=== PATIENT | male | born 1950 | race Caucasian/White ===

== ENCOUNTER → 2019-05-11 10:18 | Outpatient (CLI) | payer MEDICARE, SELFPAY ==
[2019-05-11 11:11] LABS: Hemoglobin A1C% w Est Avg Glu 6.3 % (4.0-6.0)
[2019-05-11 11:21] LABS: Alanine Aminotransferase 35 IU/L (21-72); Albumin 4.2 g/dL (3.5-5.0); Albumin Globulin Ratio 1.4 (1.0-2.8); Alkaline Phosphatase 70 U/L (38-126); Aspartate Aminotransferase 33 IU/L (17-59); BUN Creatinine Ratio 21.3 (6-22); Bilirubin Total 0.5 mg/dL (0.2-1.3); Blood Urea Nitrogen 17 mg/dL (9-20); Calcium 9.3 mg/dL (8.4-10.2); Carbon Dioxide 28 mmol/L (22-32); Chloride 101 mmol/L (98-107); Cholesterol 184 mg/dL (140-199); Estimated Glomerular Filt Rate > 60.0 mL/min (>60); Globulin 3.1 g/dL (1.7-4.1); Glucose 132 mg/dL (80-110); HDL Cholesterol 60 mg/dL (40-60); HEMOLYSIS < 15 (0-50); LDL Cholesterol Calculated 115 mg/dL (<100); Potassium 4.7 mmol/L (3.4-5.1); Sodium 138 mmol/L (137-145); Total Protein 7.3 g/dL (6.3-8.2); Triglycerides 45 mg/dL (35-150)
== END ==
PROVIDERS: Visit Provider Internal Medicine
DX: E11.9 Type 2 diabetes mellitus without complications (principal)
CPT/HCPCS: 36415; 80053; 80061; 83036

== ENCOUNTER → 2020-08-04 10:40 | Outpatient (CLI) | payer MEDICARE, SELFPAY ==
[2020-08-04 12:35] LABS: Hemoglobin A1C% w Est Avg Glu 6.6 % (4.0-6.0)
[2020-08-04 12:56] LABS: Alanine Aminotransferase 34 IU/L (<50); Albumin 4.1 g/dL (3.5-5.0); Albumin Globulin Ratio 1.5 (1.0-2.8); Alkaline Phosphatase 81 U/L (38-126); Aspartate Aminotransferase 32 IU/L (17-59); BUN Creatinine Ratio 20.7 (6-22); Bilirubin Total 0.5 mg/dL (0.2-1.3); Blood Urea Nitrogen 17 mg/dL (9-20); Calcium 9.1 mg/dL (8.4-10.2); Carbon Dioxide 31 mmol/L (22-32); Chloride 103 mmol/L (98-107); Cholesterol 153 mg/dL (140-199); Estimated Glomerular Filt Rate > 60.0 mL/min (>60); Globulin 2.8 g/dL (1.7-4.1); Glucose 113 mg/dL (80-110); HDL Cholesterol 39 mg/dL (40-60); HEMOLYSIS < 15 (0-50); LDL Cholesterol Calculated 100 mg/dL (<100); Potassium 4.8 mmol/L (3.4-5.1); Sodium 138 mmol/L (137-145); Total Protein 6.9 g/dL (6.3-8.2); Triglycerides 70 mg/dL (35-150)
== END ==
PROVIDERS: PCP Family Medicine; Referring Provider Family Medicine; Visit Provider Family Medicine
DX: E78.5 Hyperlipidemia, unspecified (principal); R73.03 Prediabetes
CPT/HCPCS: 36415; 80053; 80061; 83036

== ENCOUNTER → 2020-11-12 09:14 | Outpatient (CLI) | payer MEDICARE, SELFPAY ==
[2020-11-12 09:58] LABS: WBC Urine None Seen (0-5/HPF)
[2020-11-12 10:01] LABS: Appearance Urine UA SL CLOUDY; Bilirubin Urine UA NEGATIVE (NEGATIVE); Color Urine UA YELLOW; Glucose Urine UA NEGATIVE (Negative); Ketones Urine UA NEGATIVE (NEGATIVE); Leukocyte Esterase Urine UA NEGATIVE (NEGATIVE); Nitrite Urine UA NEGATIVE (Negative); Occult Blood Urine UA 3+ (Negative); Protein Urine UA NEGATIVE (Negative); Urobilinogen Urine UA 0.2 E.U./dL (0.2); pH Urine UA 6.5 (4.5-8.0)
[2020-11-12 10:11] LABS: Bacteria Urine Occasional (0-1); RBC Urine >100/HPF (0-5/HPF)
[2020-11-12 10:12] LABS: Culture Indicated Urine Cult Not Indicated
[2020-11-12 11:09] LABS: Prostate Specific Antigen Scrn 4.15 ng/mL (0.1-4.0)
[2020-11-18 05:10] LABS: Percent Free Testosterone 2.36 % (1.50-4.20); Testosterone Free 11.64 ng/dL (5.00-21.00); Testosterone Total 493.1 ng/dL (264.0-916.0)
== END ==
PROVIDERS: PCP Family Medicine; Referring Provider Family Medicine; Visit Provider Family Medicine
DX: R39.198 Other difficulties with micturition (principal); Z12.5 Encounter for screening for malignant neoplasm of prostate; N52.9 Male erectile dysfunction, unspecified
CPT/HCPCS: 36415; 81001; 84402; 84403; G0103

== ENCOUNTER → 2021-05-14 09:45 | Outpatient (CLI) | payer MEDICARE, SELFPAY ==
[2021-05-14 10:07] LABS: Bacteria Urine None Seen; RBC Urine None Seen (0-5/HPF)
[2021-05-14 10:52] LABS: Alanine Aminotransferase 37 IU/L (<50); Albumin 4.2 g/dL (3.5-5.0); Albumin Globulin Ratio 1.3 (1.0-2.8); Alkaline Phosphatase 71 U/L (38-126); Aspartate Aminotransferase 37 IU/L (17-59); BUN Creatinine Ratio 23.1 (6-22); Bilirubin Total 0.5 mg/dL (0.2-1.3); Blood Urea Nitrogen 18 mg/dL (9-20); Calcium 9.8 mg/dL (8.4-10.2); Carbon Dioxide 30 mmol/L (22-32); Chloride 104 mmol/L (98-107); Estimated Glomerular Filt Rate > 60.0 mL/min (>60); Globulin 3.2 g/dL (1.7-4.1); Glucose 133 mg/dL (80-110); HEMOLYSIS < 15 (0-50); Potassium 4.9 mmol/L (3.4-5.1); Sodium 139 mmol/L (137-145); Total Protein 7.4 g/dL (6.3-8.2)
[2021-05-14 11:03] LABS: Hemoglobin A1C% w Est Avg Glu 6.6 % (4.0-6.0)
[2021-05-14 13:35] LABS: Appearance Urine UA CLEAR; Bilirubin Urine UA NEGATIVE (NEGATIVE); Color Urine UA YELLOW; Glucose Urine UA NEGATIVE (Negative); Ketones Urine UA NEGATIVE (NEGATIVE); Leukocyte Esterase Urine UA NEGATIVE (NEGATIVE); Nitrite Urine UA NEGATIVE (Negative); Occult Blood Urine UA NEGATIVE (Negative); Protein Urine UA NEGATIVE (Negative); Specific Gravity Urine UA 1.015 (1.000-1.035); Urobilinogen Urine UA 0.2 E.U./dL (0.2); pH Urine UA 5.5 (4.5-8.0)
[2021-05-14 14:07] LABS: Culture Indicated Urine Cult Not Indicated; Urine Comments Microscopic Normal; WBC Urine 0-1/HPF (0-5/HPF)
== END ==
PROVIDERS: PCP Family Medicine; Referring Provider Family Medicine; Visit Provider Family Medicine
DX: E11.9 Type 2 diabetes mellitus without complications (principal); Z12.5 Encounter for screening for malignant neoplasm of prostate; R10.9 Unspecified abdominal pain; R39.198 Other difficulties with micturition; N52.9 Male erectile dysfunction, unspecified
CPT/HCPCS: 36415; 80053; 81001; 83036; G0103

== ENCOUNTER → 2021-05-19 11:41 | Outpatient (CLI) | payer MEDICARE, SELFPAY ==
--- NOTE | 2021-05-19 11:43 | DI.CT.S_ITS ---
PROCEDURE: CT ABDOMEN PELVIS WO CON INDICATIONS: hematuria, concern for right-sided kidney stone TECHNIQUE: Axial sections were acquired from the lung bases to the pubic symphysis. Coronal and sagittal reformats were performed. For radiation dose reduction, the following was used: automated exposure control, adjustment of mA and/or kV according to patient size. COMPARISON:None. FINDINGS: Image quality: Excellent. Lung bases: Unremarkable. Heart: No significant findings. URINARY: Right Kidney: No hydronephrosis. No perinephric stranding. A few nonobstructing right renal stones noted with the largest measuring approximately 9 mm in size. Right Ureter: No hydroureter. No right-sided ureteral stones. No periureteral stranding. Left Kidney: No hydronephrosis. No perinephric stranding. A few nonobstructing left renal stones visualized with the largest measuring approximately 5 mm. Left Ureter: No hydroureter or left-sided ureteral stones. No periureteral stranding. Bladder: No urinary bladder stones. Minimal circumferential wall thickening of the urinary bladder likely related to incomplete distension. No perivesicular inflammation. ABDOMEN: Liver: Multiple small calcified hepatic granulomas. Liver is otherwise unremarkable. Gallbladder: Gallbladder contains multiple gallstones without CT evidence for acute cholecystitis. Biliary ducts: No biliary ductal dilatation. Pancreas: Unremarkable. Spleen: Multiple calcified splenic granulomas. Spleen is otherwise unremarkable. Adrenal Glands: Unremarkable. Stomach and Bowel: Stomach, small bowel loops, and colon are unremarkable. Scattered colonic diverticulosis most pronounced in the sigmoid colon. No evidence for acute diverticulitis. Normal appendix. Peritoneum: No abnormal intraperitoneal fluid. No free air. Ventral Wall: No hernia. Abdominal Nodes: No enlarged retroperitoneal or mesenteric lymph nodes. Vessels: Scattered atherosclerotic calcifications of the abdominal aorta and iliac vessels without aneurysmal dilatation. PELVIS: Pelvic Organs: Mild prostatomegaly. Findings compatible with prior vasectomy. Pelvic Nodes: Unremarkable. Miscellaneous: No inguinal hernias are seen. Bones: No acute vertebral body compression fractures. Multilevel spondylitic changes throughout the imaged spine. No suspicious osseous lesions. Mild grade 1 anterolisthesis of L4 on L5 likely related to moderate degenerative facet arthropathy of the lower lumbar spine. IMPRESSION: 1. Bilateral nonobstructing nephrolithiasis as described above. No evidence for hydronephrosis, perinephric, or periureteral inflammation. 2. Cholelithiasis without CT evidence for acute cholecystitis. 3. Atherosclerotic vascular disease. 4. Colonic diverticulosis without acute diverticulitis. Other chronic findings as above. Dictated by: Catarino Richardson M.D. on 05/19/2021 at 18:25 Approved by: Catarino Richardson M.D. on 05/19/2021 at 18:34
== END ==
PROVIDERS: PCP Family Medicine; Referring Provider Family Medicine; Visit Provider Family Medicine
DX: R10.9 Unspecified abdominal pain (principal); R31.9 Hematuria, unspecified; N20.0 Calculus of kidney; K80.20 Calculus of gallbladder without cholecystitis without obstruction; I70.0 Atherosclerosis of aorta
CPT/HCPCS: 74176

== ENCOUNTER 2021-05-22 11:22 | Emergency (ER) | payer MEDICARE, SELFPAY ==
[2021-05-22 11:41] VITALS: BP 133/80; PULSE 58; RESP 15; TEMP 36.6; O2SAT 98; BMI 30.1
--- NOTE | 2021-05-22 14:22 | ED_ITS ---
HPI - Male Genitourinary <Mil Horta PA-C - Last Filed: 05/22/21 14:40> General Chief complaint: Urogenital-Male Stated complaint: LOWER LEFT BACK PAIN-3 WEEKS. THINKS KIDNEYS Time Seen by Provider: 05/22/21 13:30 Source: patient Mode of arrival: Ambulatory Limitations: no limitations History of Present Illness HPI Narrative: Mathieu presents today with chief complaint of continued left- sided back pain that started about 3 weeks ago. Symptoms are worse with rotational movements of his head, twisting, bending forward but are constant also. He saw his primary care provider who did a CT scan. Multiple kidney stones were identified without any evidence of hydronephrosis. Was given a prescription of gabapentin which he filled this morning but is hesitant to take the medication. He denies any significant rash, fever, chest pain, exertional symptoms, shortness of breath, decreased urine output, pain with urination, hematuria or any other acute concerns or complaints at this time. Related Data Home Medications Medication Instructions Recorded Confirmed multivitamin 1 cap PO DAILY 08/04/20 05/14/21 betamethasone dipropionate 0.05 % 1 applic TOPICAL BID PRN 05/14/21 05/14/21 topical cream betamethasone valerate 0.1 % 1 applic TOPICAL BID PRN 05/14/21 05/14/21 topical cream Previous Rx's Medication Instructions Recorded metformin 850 mg tablet 850 mg PO BID #180 tab 08/04/20 meloxicam 15 mg tablet See Rx Instructions .ROUTE 01/16/21 .COMPLEX #90 tab tamsulosin 0.4 mg capsule See Rx Instructions .ROUTE 04/21/21 .COMPLEX #90 cap gabapentin 300 mg capsule 300 mg PO TID PRN #90 cap 05/22/21 Allergies Allergy/AdvReac Type Severity Reaction Status Date / Time No Known Drug Allergies Allergy Verified 05/22/21 11:41 Review of Systems <Mil Horta PA-C - Last Filed: 05/22/21 14:40> Review of Systems Narrative: As per HPI Patient History <Mil Horta PA-C - Last Filed: 05/22/21 14:40> Medical History (Updated 05/22/21 @ 14:39 by Mil Horta PA-C) Diabetes Erectile dysfunction Hyperlipidemia Osteoarthritis of right knee Pre-diabetes Family History Mother No problems noted. Father No problems noted. Social History housing: house occupational status: other other: walking Smoking Status: Never smoker alcohol intake: current Smoking Status: Never smoker alcohol intake frequency: a few times a week Substance Use Type: does not use Exam <Mil Horta PA-C - Last Filed: 05/22/21 14:40> Narrative Exam Narrative: Exam Narrative: Const General: cooperative, healthy appearing, comfortable, no acute distress, well developed and well groomed Nutritional Appearance: average body habitus Orientation: alert and oriented x3 HENMT Head: normal to inspection and atraumatic Ears: hearing grossly normal bilaterally Nose: external nose normal and nares normal Face and sinus: normal facial exam Neck Neck: normal visual inspection and supple Resp Effort & Inspection: normal respiratory effort, able to speak in complete sentences, no audible wheezes, not labored, no nasal flaring and no respiratory distress GI Nontender to palpation, nondistended, normal bowel sounds No CVA tenderness bilaterally Musculoskeletal No midline spinal tenderness, no paraspinal muscle tenderness noted. Skin No rash or lesions noted. Neuro General: alert, oriented x3, gait normal, tone normal and moves all extremities Cognition: normal cognition Speech: speech normal Gait: normal gait Psych Appearance: grossly normal and well kempt Mental Status: mental status grossly normal Speech and Movement: speech and movement normal Mood: congruent mood Affect: normal affect Initial Vital Signs Initial Vital Signs: Vital Signs Temperature 97.8 F 05/22/21 11:41 Pulse Rate 58 L 05/22/21 11:41 Respiratory Rate 15 05/22/21 11:41 Blood Pressure 133/80 05/22/21 11:41 Pulse Oximetry 98 05/22/21 11:41 <Chika Adler DO - Last Filed: 05/29/21 07:33> Initial Vital Signs Initial Vital Signs: Vital Signs Temperature 97.8 F 05/22/21 11:41 Pulse Rate 58 L 05/22/21 11:41 Respiratory Rate 15 05/22/21 11:41 Blood Pressure 133/80 05/22/21 11:41 Pulse Oximetry 98 05/22/21 11:41 Course <Mil Horta PA-C - Last Filed: 05/22/21 14:40> Vital Signs Vital signs: Vital Signs - 8 hr 05/22/21 11:41 Temperature 97.8 F Pulse Rate 58 L Respiratory Rate 15 Blood Pressure 133/80 Pulse Oximetry 98 <Chikakevin AdlerDO - Last Filed: 05/29/21 07:33> Vital Signs Vital signs: Vital Signs - 8 hr 05/22/21 11:41 Temperature 97.8 F Pulse Rate 58 L Respiratory Rate 15 Blood Pressure 133/80 Pulse Oximetry 98 MDM - Male Genitourinary <Mil Horta PA-C - Last Filed: 05/22/21 14:40> MDM Narrative Medical decision making narrative: Differential diagnosis includes acute pyelonephritis, herpes zoster, musculoskeletal strain, hydronephrosis. Patient is well-appearing at this time and has no systemic signs of illness. No areas of erythema or rashes identified on examination. Given his positional symptoms I am concerned for possible muscle strain. CT done yesterday is reassuring but also provides a possibility given his kidney stones. He reports that this is similar to his previous kidney stone pain but slightly different. He is still urinating normally so I do not suspect any significant hydronephrosis or urinary obstruction. Will discharge at this time we stretching, warm compresses to cover for musculoskeletal problem and then continuation of the medication he was prescribed by his PCP for kidney stone. He has a follow-up already scheduled for his PCP. Strict ER return precautions were discussed with the patient. Patient verbalizes understanding and agrees to plan and has no further concerns at this time. Thank you A [id number] system was used with the dictation of this note. Please disregard any spelling or grammatical errors. Discharge Plan Departure Patient Disposition: Home Clinical Impression: Back pain Qualifiers: Back pain location: thoracic back pain Chronicity: unspecified Back pain laterality: left Qualified Code(s): M54.6 - Pain in thoracic spine Activity Restrictions/Additional Instructions: It was very nice to meet you this afternoon. Please do the warm compresses, stretching, and use the medication that your PCP prescribed. ER return preca utions include chest pain, fever, decreased urine output or any other new or worsening complaints. Thank you Mil Horta PA-C Prescriptions: No Action meloxicam 15 mg tablet See Rx Instructions .ROUTE .COMPLEX Qty: 90 RF: 0 tamsulosin 0.4 mg capsule See Rx Instructions .ROUTE .COMPLEX Qty: 90 RF: 0 gabapentin 300 mg capsule 300 mg PO TID PRN (Reason: Pain) Qty: 90 RF: 0 betamethasone dipropionate 0.05 % cream 1 applic topical BID PRNRF: 0 betamethasone valerate 0.1 % cream 1 applic topical BID PRNRF: 0 multivitamin Capsule 1 cap PO DAILY RF: 0 metformin 850 mg tablet 850 mg PO BID Qty: 180 RF: 3 Referrals: Kavon Dixon MD [Primary Care Provider] - <Chika Adler DO - Last Filed: 05/29/21 07:33> Cosign ED Attending Cosignature Attestation: I was immediately available in the department for consultation. Documentation has been reviewed.
[2021-05-22 14:56] VITALS: BP 142/75; PULSE 60; RESP 18; O2SAT 93
== END 2021-05-22 14:57 | disposition home or self-care (01) ==
PROVIDERS: Emergency Provider Physician Assistant; PCP Family Medicine
DX: M54.6 Pain in thoracic spine (principal)
CPT/HCPCS: 99281; 99282

== ENCOUNTER → 2021-09-28 12:56 | Outpatient (CLI) | payer MEDICARE, SELFPAY ==
[2021-09-28 14:19] LABS: Hemoglobin A1C% w Est Avg Glu 6.7 % (4.0-6.0)
== END ==
PROVIDERS: PCP Family Medicine; Referring Provider Family Medicine; Visit Provider Family Medicine
DX: E11.9 Type 2 diabetes mellitus without complications (principal)
CPT/HCPCS: 36415; 83036

== ENCOUNTER → 2022-01-18 10:33 | Outpatient (CLI) | payer MEDICARE, SELFPAY ==
--- NOTE | 2022-01-18 10:36 | DI.RAD.S_ITS ---
PROCEDURE: XR LUMBAR SPINE 2-3V INDICATIONS: chronic low back pain with right thigh weakness TECHNIQUE: 3 views of the lumbar spine were acquired. COMPARISON: None. FINDINGS: Bones: 5 [id number] vertebrae are present. There is 3 mm retrolisthesis of L1 on L2, L2 on L3, 5 mm retrolisthesis L3 on L4, 5 mm of L5 on S1, 7 mm anterolisthesis of L4 on L5. Multilevel moderate to severe disc space narrowing most prominent at L5-S1. Severe foraminal narrowing is noted L4-5, L5-S1, moderate throughout the remainder of the lumbar spine. No vertebral body compression fractures. No suspicious bony lesions. Soft tissues: Overlying bowel gas pattern is normal. Calcifications are noted overlying the renal shadows bilaterally as well as the right upper quadrant. Prominent colonic stool. IMPRESSION: Multilevel degenerative changes most severe at L5-S1. Calcifications overlying the right upper quadrant as well as renal shadow suspicious for stones. Dictated by: Rosa Curry M.D. on 01/18/2022 at 15:02 Approved by: Rosa Curry M.D. on 01/18/2022 at 15:03
== END ==
PROVIDERS: PCP Family Medicine; Referring Provider Family Medicine; Visit Provider Family Medicine
DX: M47.817 Spondylosis without myelopathy or radiculopathy, lumbosacral region (principal); N28.89 Other specified disorders of kidney and ureter; M54.50 Low back pain, unspecified; G89.29 Other chronic pain; Z96.651 Presence of right artificial knee joint
CPT/HCPCS: 72100

== ENCOUNTER → 2022-01-26 07:07 | Outpatient (CLI) | payer MEDICARE, SELFPAY ==
--- NOTE | 2022-01-26 07:09 | DI.MRI.S_ITS ---
PROCEDURE: MR LUMBAR SPINE WO CON INDICATIONS: evaluate and treat TECHNIQUE: Noncontrast sagittal T1 spin echo and T2 fast echo, sagittal STIR, and T2 fast spin echo through the lumbar spine. In cases with scoliosis, additional coronal T2 fast spin echo may be performed. COMPARISON: [facility], CT, CT ABDOMEN PELVIS WO CON, 05/19/2021, 11:46. [facility], CR, XR LUMBAR SPINE 2-3V, 01/18/2022, 10:50. FINDINGS: Image quality: Excellent. Alignment and Curvature: Mild levoconvex scoliotic curvature is noted. Minimal retrolisthesis is seen at L1-L2, L2-L3, the and L3-L4. Mild grade 1 anterolisthesis is seen at L4-L5, without associated pars defects. Minimal retrolisthesis is seen L5-S1. Bone Marrow: Marrow is of normal overall signal. No acute vertebral body compression fractures. Spinal Cord: Conus medullaris terminates at the L1-L2 level. Visualized cord demonstrates normal signal and size. Paraspinous Soft Tissues: No paravertebral masses. T11-T12: Moderate to severe loss of disc height is seen, with the potential degree vertebral body fusion. Bridging endplate osteophytes are seen. Moderate bilateral neural foraminal narrowing is seen. Mild central canal narrowing is seen. T12-L1: Mild loss of disc height is seen. Loss of disc signal is seen. Mild to moderate disc bulge is seen. Mild facet joint hypertrophy is seen. There is [id number] left-sided and at least moderate right-sided neural foraminal narrowing. Moderate central canal narrowing is seen. L1-L2: Mild loss of disc height is seen. Loss of disc signal is seen. Moderate disc bulge is seen. There is a superimposed central disc protrusion. Moderate facet joint hypertrophy is seen. There is moderate to severe right-sided neural foraminal narrowing can with a mild degree of compression upon the exiting right L1 nerve root. Moderate left-sided neural foraminal narrowing is seen. Moderate to severe central canal narrowing is seen, as on series 5, image 11. L2-L3: The disc height is well-preserved. Loss of disc signal is seen at this level. Moderate generalized disc bulge is seen. There is a superimposed central disc protrusion. At least moderate facet hypertrophy is seen. Associated hypertrophy of the ligamentum flavum can be seen. There is moderate to severe bilateral neural narrowing seen. There is a degree of compression seen upon the exiting nerve roots. Moderate to severe central canal narrowing is seen, as on series 5, image 16. L3-L4: Gvld-cc-iarimeew loss of disc height and disc signal can be seen. Moderate generalized disc bulge is seen. There is a superimposed central disc protrusion. Moderate facet joint hypertrophy is seen. There is at least moderate bilateral neural foraminal narrowing seen. There is a minimal degree of compression seen upon the exiting nerve roots. Moderate central canal narrowing is seen. L4-L5: Moderate loss of disc height is seen. Loss of disc signal is seen. Moderate generalized disc bulge is seen. There is a superimposed central disc protrusion. Prominent facet hypertrophy is seen. There is moderate to severe bilateral neural foraminal narrowing seen. There is a degree of compression seen upon the exiting nerve roots. Moderate to severe central canal narrowing is seen, as on series 5 images 25 and 26. L5-S1: Moderate to severe loss of disc height and disc signal can be seen. Moderate generalized disc bulge is seen. There is a superimposed central disc protrusion. Moderate facet joint hypertrophy is seen. There is moderate to severe bilateral neural foraminal narrowing seen. There is a degree of compression seen upon the exiting nerve roots. Minimal central canal narrowing is seen. IMPRESSION: Multiple levels of lumbar spine degenerative change are seen, which are overall worst at the L2-L3 level and the L4-L5 level. Moderate to severe central canal narrowing can be seen at L2-L3, L3-L4, and L4-L5. Several sites of significant neural foraminal narrowing can be seen, with associated exiting nerve root compression. Dictated by: Omer Person M.D. on 01/26/2022 at 8:34 Approved by: Omer Person M.D. on 01/26/2022 at 8:41
== END ==
PROVIDERS: PCP Family Medicine; Referring Provider Family Medicine; Visit Provider Family Medicine
DX: M47.816 Spondylosis without myelopathy or radiculopathy, lumbar region (principal); M47.817 Spondylosis without myelopathy or radiculopathy, lumbosacral region; M48.061 Spinal stenosis, lumbar region without neurogenic claudication; M48.07 Spinal stenosis, lumbosacral region; M54.50 Low back pain, unspecified; M62.551 Muscle wasting and atrophy, not elsewhere classified, right thigh; R29.898 Other symptoms and signs involving the musculoskeletal system; G89.29 Other chronic pain
CPT/HCPCS: 72148

== ENCOUNTER → 2022-04-16 13:08 | Outpatient (CLI) | payer MEDICARE, SELFPAY | PROVIDERS: PCP Family Medicine; Referring Provider Family Medicine; Visit Provider Family Medicine | DX: I49.9 Cardiac arrhythmia, unspecified (principal) | CPT/HCPCS: 93005; 93010 ==

== ENCOUNTER → 2022-04-29 10:08 | Outpatient (CLI) | payer MEDICARE, SELFPAY ==
--- NOTE | 2022-05-18 14:55 | P.HOLT.S_ITS ---
Commercial Assistant Report Referral & Results Date Patient Seen: 04/29/22 Requesting provider: John Lea Indication: Palpitations Duration of monitoring (days): 14 Diary information: There were 4 patient triggered events, these for events were variably associated with (within 45 seconds) sinus rhythm, PACs, PVCs and ventricular bigeminy Data: Minimum heart rate identified was 28 beats per minute at 05:07 on 05/02/2022 Maximum sinus heart rate was 99 beats per minute at 00:01 on 05/01/2022 Maximum overall heart rate was 184 beats per minute at 19:11 on 04/29/2022 during a run of SVT Approximately 5.3% of identified beats were supraventricular ectopic in origin which would classify them as frequent Approximately 21.9% of identified beats were ventricular ectopic in origin which classify them as frequent, with occasional couplets and rare triplets. This included an 8 minute run of ventricular bigeminy and a 6 minute run of ventricular trigeminy There were 3 pauses of 3 seconds or longer There were 64 runs of SVT with heart rate ranging between 70 and 184 beats per minute. Some of these events may have been atrial tachycardia rather than true SVT. 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 Clinical correlation including cardiology consultation recommended This report will be faxed to ordering provider FELICITAS
== END ==
PROVIDERS: PCP Family Medicine; Referring Provider Orthopaedic Surgery; Visit Provider Orthopaedic Surgery
DX: R00.2 Palpitations (principal)
CPT/HCPCS: 93246; 93248

== ENCOUNTER → 2022-06-01 11:20 | Outpatient (CLI) | payer MEDICARE, SELFPAY ==
[2022-06-01 12:09] LABS: Hemoglobin A1C% w Est Avg Glu 6.9 % (4.0-6.0)
[2022-06-01 12:30] LABS: Alanine Aminotransferase 39 IU/L (<50); Albumin 4.2 g/dL (3.5-5.0); Albumin Globulin Ratio 1.4 (1.0-2.8); Alkaline Phosphatase 80 U/L (38-126); Aspartate Aminotransferase 36 IU/L (17-59); BUN Creatinine Ratio 23.3 (6-22); Bilirubin Total 0.6 mg/dL (0.2-1.3); Blood Urea Nitrogen 20 mg/dL (9-20); Calcium 8.8 mg/dL (8.4-10.2); Carbon Dioxide 27 mmol/L (22-32); Chloride 103 mmol/L (98-107); Cholesterol 169 mg/dL (140-199); Estimated Glomerular Filt Rate > 60 mL/min (>60); Globulin 3.1 g/dL (1.7-4.1); Glucose 146 mg/dL (80-110); HDL Cholesterol 52 mg/dL (40-60); HEMOLYSIS < 15 (0-50); LDL Cholesterol Calculated 107 mg/dL (<100); Potassium 4.5 mmol/L (3.4-5.1); Sodium 138 mmol/L (137-145); Total Protein 7.3 g/dL (6.3-8.2); Triglycerides 49 mg/dL (35-150)
[2022-06-01 13:00] LABS: Prostate Specific Antigen Scrn 5.35 ng/mL (0.1-4.0)
== END ==
PROVIDERS: PCP Family Medicine; Referring Provider Family Medicine; Visit Provider Family Medicine
DX: E11.9 Type 2 diabetes mellitus without complications (principal); E78.5 Hyperlipidemia, unspecified; Z12.5 Encounter for screening for malignant neoplasm of prostate
CPT/HCPCS: 36415; 80053; 80061; 83036; G0103

== ENCOUNTER → 2022-07-14 08:52 | Outpatient (CLI) | payer MEDICARE, SELFPAY ==
[2022-07-15 08:31] LABS: PSA Free % 16.9 % (.); PSA, Total 3.5 ng/mL (0.0-4.0)
== END ==
PROVIDERS: PCP Family Medicine; Referring Provider Specialist; Visit Provider Specialist
DX: R97.20 Elevated prostate specific antigen [PSA] (principal)
CPT/HCPCS: 36415; 84153; 84154

== ENCOUNTER → 2022-08-10 13:57 | Outpatient (CLI) | payer MEDICARE, SELFPAY ==
--- NOTE | 2022-08-10 | DI.ECHO.S_ITS ---
[facility] +---------+ : : [address] : : : : [id number] : : : : Phone: [phone]+ Echocardiogram Report + + :Name: DEBORAH AMBRIZ Study Date: 08/10/2022 Height: 70 in : :[facility] ReadingLocation: Weight: 225 lb : : Gender: Male BSA: 2.2 m2 : :: 1950 Age: 72 yrs BP: 117/74 mmHg: :Reason For Study: TACHYCARDIA : :Ordering Physician: CHRIS, : :MARY Performed By: Mercedes Huynh : :Referring: MARY PEREZ : + + Interpretation Summary The patient was in sinus bradycardia with heart rates between 42-56 bpm during the exam. The left ventricle is mildly dilated. The ejection fraction is estimated to be 55-60%. In some of the apical views, there appears to be mild distal anterolateral hypokinesis. The right ventricle is at the upper limits of normal in size. The right ventricular systolic function is normal. There appears to be bileaflet borderline mitral valve prolapse. There is mild mitral regurgitation. There is moderate pulmonic regurgitation. The ascending aorta is mildly enlarged. The IVC is of normal diameter and collapses greater than 50% with a sniff. This suggests a low right atrial pressure of 3 mm Hg. Mild atherosclerotic plaque(s) in the aortic arch. Procedure: A two-dimensional transthoracic echocardiogram with color flow and Doppler was performed. The study quality was technically adequate. There is no prior echocardiogram noted for this patient. The patient was in sinus bradycardia with heart rates between 42-56 bpm during the exam. Left Ventricle: There is normal left ventricular wall thickness. The left ventricle is mildly dilated. There is no thrombus. The ejection fraction is estimated to be 55-60%. In some of the apical views, there appears to be mild distal anterolateral hypokinesis. MV E/A: 1.4 Med Peak E' Cyrus: 5.9 cm/sec E/E' med: 11.9. Right Ventricle: The right ventricle is at the upper limits of normal in size. The right ventricular systolic function is normal. Atria: The left atrium is moderately dilated. Right atrial size is normal. There is no Doppler evidence for an interatrial shunt. Mitral Valve: There is borderline mitral valve prolapse. There appears to be bileaflet borderline mitral valve prolapse. There is mild mitral regurgitation. Aortic Valve: The aortic valve is trileaflet. The aortic valve opens well. There is discrete nodular thickening of the right coronary cusp. The aortic valve is mildly calcified. There is no aortic valve stenosis. No aortic regurgitation is present. Tricuspid Valve: The tricuspid valve is normal in structure and function. There is trace tricuspid regurgitation. Pulmonary artery pressures cannot be estimated because of the lack of a measurable TR jet velocity. Pulmonic Valve: The pulmonic valve is not well visualized. There is moderate pulmonic regurgitation. Great Vessels: The aortic root is normal size. The ascending aorta is mildly enlarged. Mild atherosclerotic plaque(s) in the aortic arch. The IVC is of normal diameter and collapses greater than 50% with a sniff. This suggests a low right atrial pressure of 3 mm Hg. Pericardium/ Pleura There is no pericardial effusion. There is no pleural effusion. MMode/2D Measurements & Calculations LVIDd: 6.0 cm LVOT diam: 2.3 cm LVIDs: 3.9 cm Ao root diam: 3.9 cm FS: 35.6 % asc Aorta Diam: 4.0 cm EPSS: 1.3 cm Ao Arch Diam (Prox Trans): 3.5 cm IVSd: 0.85 cm LVPWd: 0.99 cm LV zamora. diameter/BSA (cm/m^2): 2.7 LV sys. diameter/BSA (cm/m^2): 1.8 LA A2 area: 29.0 cm2 RA long axis: 6.1 cm LA A4 area: 23.5 cm2 RA area: 18.4 cm2 LA length (vol): 5.8 cm RA vol: 46.7 ml LA vol: 98.9 ml RA : 21.3 ml/m2 LA vol index: 45.1 ml/m2 IVC diam: 2.0 cm RVD1 (basal): 4.0 cm RVD2 (mid): 4.1 cm TAPSE: 2.5 cm Doppler Measurements & Calculations Ao V2 max: 125.9 cm/sec LVOT Max Cyrus: 85.7 cm/sec Ao V2 mean: 90.8 cm/sec LV V1 max P.9 mmHg Ao max P.3 mmHg LV V1 VTI: 17.7 cm Ao mean P.6 mmHg DOMINGO(I,D): 2.7 cm2 Ao V2 VTI: 26.6 cm DOMINGO(V,D): 2.8 cm2 sev ratio: 0.66 DOMINGO indexed to BSA (cm^2/m^2): 1.2 MV E max cyrus: 69.8 cm/sec PA V2 max: 114.4 cm/sec MV A max cyrus: 50.4 cm/sec PA V2 mean: 76.8 cm/sec MV E/A: 1.4 PA mean P.7 mmHg Med Peak E' Cyrus: 5.9 cm/sec PA pr(Accel): 20.8 mmHg E/E' med: 11.9 Lat Peak E' Cyrus: 6.6 cm/sec E/E' lat: 10.5 E/e' average: 11.2 MV dec time: 0.23 sec SV(LVOT): 72.8 ml Reading Physician:04:19 PM
[2022-08-10 14:41] LABS: COVID19 -Nasal RAPID Negative (Negative)
--- NOTE | 2022-08-10 19:53 | DI.NM.S_ITS ---
DATE OF SERVICE: 08/10/2022 PROCEDURE: Exercise stress test. INDICATION: Chest pain, PVCs, hyperlipidemia, diabetes mellitus. CARDIAC STRESS: Patient underwent exercise stress test under the supervision of an attending staff. He walked on Raul protocol for 9 minutes and 39 seconds, achieved 88 percent target heart rate, which was maximum heart rate of 130. Normal hemodynamic response. Maximum blood pressure 162/77. Achieved 10.1 METs of workload. SARAHI -41 percent. Baseline rhythm was sinus with mild sinus bradycardia. During exercise, no convincing ischemic changes seen. Initially, patient has some PACs. During exercise, no obvious PVCs. However, in recovery, patient has frequent isolated PVCs and PACs without any ventricular tachycardia or atrial fibrillation. No chest pain. Had moderate shortness of breath. CONCLUSION: Exercise stress test is negative for inducible ischemia. Excellent exercise tolerance. Functional aerobic impairment -41 percent. Normal hemodynamic response. No ischemic electrocardiographic changes. Frequent premature ventricular contractions and premature atrial contractions in recovery without any obvious atrial fibrillation or ventricular tachycardia. Overall low- risk exercise stress test. Mathieu Moore - TRACY/denis/shree doc#: [id number]/job#: [id number] dd: 08/10/2022 17:14:00 dt: 08/10/2022 19:34:00 DICTATING /COPIES TO: Raysa Benito MD COPIES MNE: BRIANA;
== END ==
PROVIDERS: PCP Family Medicine; Referring Provider Internal Medicine Cardiovascular Disease; Visit Provider Internal Medicine Cardiovascular Disease
DX: I34.0 Nonrheumatic mitral (valve) insufficiency (principal); I77.89 Other specified disorders of arteries and arterioles; I37.1 Nonrheumatic pulmonary valve insufficiency; I70.0 Atherosclerosis of aorta; I47.20 Ventricular tachycardia, unspecified; R07.9 Chest pain, unspecified; Z20.822 Contact with and (suspected) exposure to COVID-19
CPT/HCPCS: 87635; 93017; 93306

== ENCOUNTER → 2022-10-25 13:00 | Outpatient (CLI) | payer MEDICARE, SELFPAY ==
--- NOTE | 2022-10-25 13:01 | DI.RAD.S_ITS ---
PROCEDURE: XR KUB INDICATIONS: nephrolithiasis TECHNIQUE: One view of the abdomen acquired. COMPARISON: None. FINDINGS: Surgical changes and devices: None. Bowel: Bowel gas pattern is normal. Soft tissues: No suspicious abdominal calcifications. Visualized solid organ contours appear normal in size. A probable right lower pole renal stone measures approximately 7 x 11 mm. A probable left lower pole renal stone measures approximately 8 x 7 mm. There are probable calcified gallstones. Bones: No suspicious bony lesions. IMPRESSION: Bilateral nephrolithiasis and cholelithiasis. Dictated by: Tomer Tavarez M.D. on 10/25/2022 at 18:38 Approved by: Tomer Tavarez M.D. on 10/25/2022 at 18:40
[2022-10-25 14:27] LABS: Prostate Specific Antigen 4.07 ng/mL (0.10-4.00)
== END ==
PROVIDERS: PCP Family Medicine; Referring Provider Specialist; Visit Provider Specialist
DX: N40.1 Benign prostatic hyperplasia with lower urinary tract symptoms (principal); N13.8 Other obstructive and reflux uropathy; N20.0 Calculus of kidney; K80.20 Calculus of gallbladder without cholecystitis without obstruction
CPT/HCPCS: 36415; 74018; 84153

== ENCOUNTER → 2023-01-04 14:44 | Outpatient (CLI) | payer MEDICARE, SELFPAY ==
[2023-01-04 15:21] LABS: Calcium 9.3 mg/dL (8.4-10.2)
[2023-01-04 15:48] LABS: Prostate Specific Antigen 3.64 ng/mL (0.10-4.00)
[2023-01-04 17:14] LABS: Creatinine Urine Random 93.7 mg/dL
[2023-01-04 17:18] LABS: Microalbumi Creatinin Ratio Ur 24.5 ug/mg CR (<30); Microalbumin Urine Random 2.3 mg/dL (0-1.6)
[2023-01-06 02:07] LABS: Labcorp Hemoglobin (Hb) A1c 7.1 % (4.8-5.6)
== END ==
PROVIDERS: PCP Family Medicine; Referring Provider Specialist; Visit Provider Specialist
DX: N40.1 Benign prostatic hyperplasia with lower urinary tract symptoms; N13.8 Other obstructive and reflux uropathy; Z87.898 Personal history of other specified conditions; N20.0 Calculus of kidney; E11.9 Type 2 diabetes mellitus without complications
CPT/HCPCS: 36415; 82043; 82310; 82570; 83036; 84153

== ENCOUNTER → 2023-05-31 07:47 | Outpatient (CLI) | payer MEDICARE, SELFPAY ==
[2023-05-31 08:48] LABS: Add Manual Diff / Slide Review NO; Basophils Absolute Auto 0 /uL (0-100); Basophils Percent Auto 0.6 % (0-2); Eosinophils Absolute Auto 100 /uL (0-450); Eosinophils Percent Auto 2.9 % (2-4); Hematocrit 41.2 % (41-53); Lymphocytes Absolute Auto 1300 /uL (1100-4500); Mean Corpuscular Hemoglobin 31.9 PG (26-34); Mean Corpuscular Volume 93.9 fL (80-100); Monocytes Absolute Auto 500 /uL (0-900); Monocytes Percent Auto 9.5 % (3-14); Neutrophils Absolute Auto 3100 /uL (1500-7000); Platelet Count 174 X10^3/uL (150-400); Red Blood Cell Count 4.38 X10^6/uL (4.5-5.9); Red Cell Distribution Width 13.3 % (11.6-14.8)
[2023-05-31 09:19] LABS: Alanine Aminotransferase 37 IU/L (<50); Albumin 3.8 g/dL (3.5-5.0); Albumin Globulin Ratio 1.3 (1.0-2.8); Alkaline Phosphatase 65 U/L (38-126); Aspartate Aminotransferase 32 IU/L (17-59); Bilirubin Total 0.5 mg/dL (0.2-1.3); Blood Urea Nitrogen 17 mg/dL (9-20); Calcium 8.9 mg/dL (8.4-10.2); Carbon Dioxide 27 mmol/L (22-32); Chloride 103 mmol/L (98-107); Cholesterol 165 mg/dL (140-199); Estimated Glomerular Filt Rate > 60 mL/min (>60); Globulin 2.9 g/dL (1.7-4.1); Glucose 171 mg/dL (80-110); HDL Cholesterol 52 mg/dL (40-60); HEMOLYSIS < 15 (0-50); LDL Cholesterol Calculated 105 mg/dL (<100); Potassium 4.6 mmol/L (3.4-5.1); Sodium 136 mmol/L (137-145); Total Protein 6.7 g/dL (6.3-8.2); Triglycerides 41 mg/dL (35-150)
[2023-05-31 09:36] LABS: TSH w/ Reflex to FT4 1.94 uIU/mL (0.47-4.68)
[2023-05-31 11:42] LABS: Hemoglobin A1C% w Est Avg Glu 6.9 % (4.0-6.0)
[2023-05-31 13:03] LABS: Creatinine Urine Random 129.1 mg/dL
[2023-05-31 13:07] LABS: Microalbumi Creatinin Ratio Ur 9.2 ug/mg CR (<30); Microalbumin Urine Random 1.2 mg/dL (0-1.6)
== END ==
PROVIDERS: PCP Family Medicine; Referring Provider Family Medicine; Visit Provider Family Medicine
DX: E11.9 Type 2 diabetes mellitus without complications (principal); E78.5 Hyperlipidemia, unspecified
CPT/HCPCS: 36415; 80053; 80061; 82043; 82570; 83036; 84443; 85025

== ENCOUNTER → 2023-10-14 13:25 | Outpatient (CLI) | payer MEDICARE, SELFPAY ==
[2023-10-16 11:09] LABS: PSA Free % 21.9 % (.); PSA, Total 2.7 ng/mL (0.0-4.0)
== END ==
PROVIDERS: PCP Family Medicine; Referring Provider Family Medicine; Visit Provider Family Medicine
DX: E11.9 Type 2 diabetes mellitus without complications (principal); Z87.898 Personal history of other specified conditions
CPT/HCPCS: 36415; 83036; 84153; 84154

== ENCOUNTER → 2023-12-04 11:43 | Outpatient (CLI) | payer MEDICARE, SELFPAY ==
--- NOTE | 2023-12-04 11:45 | DI.MRI.S_ITS ---
PROCEDURE: MR LUMBAR SPINE WO CON INDICATIONS: chronic low back pain TECHNIQUE: Noncontrast sagittal T1 spin echo and T2 fast echo, sagittal STIR, and T2 fast spin echo through the lumbar spine. In cases with scoliosis, additional coronal T2 fast spin echo may be performed. COMPARISON: [facility], MR, MR LUMBAR SPINE WO CON, 01/26/2022, 7:25. FINDINGS: Image quality: Excellent. Alignment and Curvature: Grade 1 degenerative anterior spondylolisthesis L4-5 Bone Marrow: Degenerative endplate changes Modic type 1 at L2-3 Spinal Cord: Conus medullaris terminates at the L1 level. Visualized cord demonstrates normal signal and size. Paraspinous Soft Tissues: No paravertebral masses. T12-L1: Disc space narrowing with right lateral disc bulge. No central or foraminal stenosis L1-L2: Disc space narrowing with hypertrophic facet joints results in moderate central stenosis. Moderate bilateral foraminal stenosis L2-L3: Disc space narrowing and broad-based disc bulge with hypertrophic facet joints and ligamentum flavum laxity results in severe central stenosis. Severe right and severe left foraminal stenosis L3-L4: Disc space narrowing with broad-based disc bulge and hypertrophic facet joints. Moderate central stenosis present. Moderate bilateral foraminal stenosis L4-L5: Broad-based disc bulge, hypertrophic facet joints and ligamentum flavum laxity results in moderate to severe central stenosis. Severe bilateral foraminal stenosis L5-S1: Disc space narrowing with hypertrophic facet joints present. No central stenosis. Severe left and moderate right foraminal stenosis IMPRESSION: Multilevel degenerative disc disease and arthropathy results in varying degrees of central and foraminal stenosis including severe central and foraminal stenosis L2-3 with moderate to severe central stenosis L4-5 Approved by: Mukund Rosas M.D. on 12/05/2023 at 18:36
== END ==
LOC: MRI 11:44
PROVIDERS: PCP Family Medicine; Referring Provider Family Medicine; Visit Provider Family Medicine
DX: M47.26 Other spondylosis with radiculopathy, lumbar region (principal); M51.16 Intervertebral disc disorders with radiculopathy, lumbar region; M47.27 Other spondylosis with radiculopathy, lumbosacral region; M48.061 Spinal stenosis, lumbar region without neurogenic claudication; M48.07 Spinal stenosis, lumbosacral region; R29.898 Other symptoms and signs involving the musculoskeletal system
CPT/HCPCS: 72148

== ENCOUNTER → 2024-02-23 13:06 | Outpatient (CLI) | payer MEDICARE, SELFPAY ==
[2024-02-24 06:09] LABS: Hemoglobin A1C% w Est Avg Glu 6.8 % (4.0-6.0)
== END ==
PROVIDERS: PCP Family Medicine; Referring Provider Family Medicine; Visit Provider Family Medicine
DX: R73.03 Prediabetes (principal)
CPT/HCPCS: 36415; 83036

== ENCOUNTER → 2024-09-04 08:10 | Outpatient (CLI) | payer MEDICARE, SELFPAY ==
[2024-09-04 09:13] LABS: Add Manual Diff / Slide Review NO; Basophils Absolute Auto 0 /uL (0-100); Basophils Percent Auto 0.9 % (0-2); Eosinophils Absolute Auto 100 /uL (0-450); Eosinophils Percent Auto 2.9 % (2-4); Hematocrit 44.2 % (41-53); Hemoglobin 14.9 g/dL (13.5-17.5); Lymphocytes Absolute Auto 1600 /uL (1100-4500); Lymphocytes Percent Auto 31.6 % (25-40); Mean Corpuscular HGB Conc 33.7 % (30-36); Mean Corpuscular Hemoglobin 31.9 PG (26-34); Mean Corpuscular Volume 94.6 fL (80-100); Monocytes Absolute Auto 500 /uL (0-900); Monocytes Percent Auto 10.1 % (3-14); Neutrophils Absolute Auto 2800 /uL (1500-7000); Neutrophils Percent Auto 54.5 % (50-75); Platelet Count 182 X10^3/uL (150-400); Red Blood Cell Count 4.67 X10^6/uL (4.5-5.9); Red Cell Distribution Width 13.4 % (11.6-14.8); White Blood Cell Count 5.1 X10^3/uL (4.5-11.0)
[2024-09-04 09:28] LABS: Hemoglobin A1C% w Est Avg Glu 7.4 % (4.0-6.0)
[2024-09-04 09:33] LABS: Alanine Aminotransferase 40 IU/L (<50); Albumin 4.2 g/dL (3.5-5.0); Albumin Globulin Ratio 1.6 (1.0-2.8); Alkaline Phosphatase 67 U/L (38-126); Aspartate Aminotransferase 35 IU/L (17-59); BUN Creatinine Ratio 21.2 (6-22); Bilirubin Total 0.7 mg/dL (0.2-1.3); Blood Urea Nitrogen 18 mg/dL (9-20); Calcium 9.5 mg/dL (8.4-10.2); Carbon Dioxide 30 mmol/L (22-32); Chloride 103 mmol/L (98-107); Cholesterol 181 mg/dL (140-199); Estimated Glomerular Filt Rate > 60 mL/min (>60); Globulin 2.7 g/dL (1.7-4.1); Glucose 170 mg/dL (80-110); HDL Cholesterol 59 mg/dL (40-60); HEMOLYSIS < 15 (0-50); LDL Cholesterol Calculated 111 mg/dL (<100); Sodium 137 mmol/L (137-145); Total Protein 6.9 g/dL (6.3-8.2); Triglycerides 53 mg/dL (35-150)
[2024-09-04 09:35] LABS: Potassium 5.4 mmol/L (3.4-5.1)
[2024-09-04 09:59] LABS: Prostate Specific Antigen 4.15 ng/mL (0.10-4.00)
[2024-09-05 04:14] LABS: Apolipoprotein B 85 mg/dL (<90)
== END ==
PROVIDERS: PCP Family Medicine; Referring Provider Family Medicine; Visit Provider Family Medicine
DX: E78.5 Hyperlipidemia, unspecified (principal); E11.9 Type 2 diabetes mellitus without complications; R00.1 Bradycardia, unspecified; Z87.898 Personal history of other specified conditions
CPT/HCPCS: 36415; 80053; 80061; 82172; 83036; 84153; 85025

== ENCOUNTER → 2024-09-13 09:16 | Outpatient (CLI) | payer MEDICARE, SELFPAY ==
[2024-09-13 10:56] LABS: Alanine Aminotransferase 40 IU/L (<50); Albumin 4.2 g/dL (3.5-5.0); Albumin Globulin Ratio 1.6 (1.0-2.8); Alkaline Phosphatase 66 U/L (38-126); Aspartate Aminotransferase 34 IU/L (17-59); BUN Creatinine Ratio 20.7 (6-22); Bilirubin Total 0.6 mg/dL (0.2-1.3); Blood Urea Nitrogen 19 mg/dL (9-20); Calcium 9.5 mg/dL (8.4-10.2); Carbon Dioxide 28 mmol/L (22-32); Chloride 103 mmol/L (98-107); Estimated Glomerular Filt Rate > 60 mL/min (>60); Globulin 2.7 g/dL (1.7-4.1); Glucose 165 mg/dL (80-110); HEMOLYSIS < 15 (0-50); Potassium 4.4 mmol/L (3.4-5.1); Sodium 137 mmol/L (137-145); Total Protein 6.9 g/dL (6.3-8.2)
== END ==
PROVIDERS: PCP Family Medicine; Referring Provider Family Medicine; Visit Provider Family Medicine
DX: E11.9 Type 2 diabetes mellitus without complications (principal); E78.5 Hyperlipidemia, unspecified
CPT/HCPCS: 36415; 80053

== ENCOUNTER → 2025-01-31 12:40 | Outpatient (CLI) | payer MEDICARE, SELFPAY ==
[2025-01-31 13:50] LABS: Add Manual Diff / Slide Review NO; Basophils Absolute Auto 0 /uL (0-100); Basophils Percent Auto 0.6 % (0-2); Eosinophils Absolute Auto 100 /uL (0-450); Eosinophils Percent Auto 1.5 % (2-4); Hematocrit 45.3 % (41-53); Hemoglobin 15.4 g/dL (13.5-17.5); Lymphocytes Absolute Auto 1400 /uL (1100-4500); Lymphocytes Percent Auto 27.2 % (25-40); Mean Corpuscular Hemoglobin 32.5 PG (26-34); Mean Corpuscular Volume 95.5 fL (80-100); Monocytes Absolute Auto 400 /uL (0-900); Neutrophils Absolute Auto 3200 /uL (1500-7000); Neutrophils Percent Auto 63.7 % (50-75); Platelet Count 164 X10^3/uL (150-400); Red Blood Cell Count 4.74 X10^6/uL (4.5-5.9); Red Cell Distribution Width 13.1 % (11.6-14.8); White Blood Cell Count 5.1 X10^3/uL (4.5-11.0)
[2025-01-31 14:06] LABS: Alanine Aminotransferase 38 IU/L (<50); Albumin 4.3 g/dL (3.5-5.0); Albumin Globulin Ratio 1.6 (1.0-2.8); Alkaline Phosphatase 63 U/L (38-126); Aspartate Aminotransferase 37 IU/L (17-59); BUN Creatinine Ratio 19.2 (6-22); Bilirubin Total 0.7 mg/dL (0.2-1.3); Blood Urea Nitrogen 19 mg/dL (9-20); Calcium 9.1 mg/dL (8.4-10.2); Carbon Dioxide 28 mmol/L (22-32); Chloride 102 mmol/L (98-107); Cholesterol 174 mg/dL (140-199); Estimated Glomerular Filt Rate > 60 mL/min (>60); Globulin 2.7 g/dL (1.7-4.1); Glucose 211 mg/dL (70-99); HDL Cholesterol 54 mg/dL (40-60); HEMOLYSIS < 15 (0-50); LDL Cholesterol Calculated 111 mg/dL (<100); Potassium 4.4 mmol/L (3.4-5.1); Sodium 137 mmol/L (137-145); Triglycerides 46 mg/dL (35-150)
[2025-01-31 14:15] LABS: Hemoglobin A1C% w Est Avg Glu 7.1 % (4.0-6.0)
[2025-01-31 14:36] LABS: Prostate Specific Antigen 3.91 ng/mL (0.10-4.00)
[2025-02-02 03:08] LABS: Apolipoprotein B 85 mg/dL (<90)
== END ==
PROVIDERS: PCP Family Medicine; Referring Provider Family Medicine; Visit Provider Family Medicine
DX: E78.5 Hyperlipidemia, unspecified (principal); E11.9 Type 2 diabetes mellitus without complications; R97.20 Elevated prostate specific antigen [PSA]; R00.1 Bradycardia, unspecified
CPT/HCPCS: 36415; 80053; 80061; 82172; 83036; 84153; 85025

== ENCOUNTER → 2025-02-15 08:53 | Outpatient (CLI) | payer MEDICARE, SELFPAY ==
--- NOTE | 2025-02-15 08:55 | DI.MRI.S_ITS ---
PROCEDURE: MR ELBOW RT WO CON INDICATIONS: right elbow pain TECHNIQUE: Noncontrast coronal proton density fast spin echo and T2 fast spin echo with fat saturation, axial and sagittal T1 spin echo and T2 fast spin echo with fat saturation through the elbow. COMPARISON: [facility], CR, XR ELBOW 3+ VIEWS RIGHT, 08/28/2024, 8:11. FINDINGS: Image quality: Excellent. Lateral structures: Suspected chronic tearing of the proximal radial collateral ligament. The lateral ulnar collateral ligament is intact. The overlying common extensor tendon demonstrates high-grade partial tearing of the origin, likely chronic. Medial structures: The ulnar collateral ligament appears intact. The overlying common flexor tendon appears normal. Ulnar nerve is thickened with mildly increased T2-weighted signal, which can be seen in the setting of ulnar neuritis. Anterior structures: Fatty infiltration of the distal brachialis muscle and to a lesser extent the included distal biceps muscle medially. There is fatty infiltration of the supra does measure muscle. The biceps and brachialis tendons both appear intact as they insert onto the proximal radius and ulna, respectively. No bicipitoradial bursal fluid. The median and radial neurovascular bundles appear normal; no focal muscle atrophy to suggest nerve impingement. Posterior structures: The conjoint triceps tendon from the long and lateral heads appears intact. The medial head of the triceps tendon also appears normal, with direct muscle insertion onto the olecranon. No olecranon bursal fluid. Bone and cartilage: No bone marrow contusions or fractures. No osteochondral injuries. IMPRESSION: 1. 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 2. High-grade partial articular sided tearing of the common extensor tendon at the origin. 3. Mild radiocapitellar osteoarthrosis. 4. Fatty infiltration of the brachialis muscle, distal biceps muscle, and supinator muscle, suspicious for chronic denervation changes. 5. Mild thickening of the ulnar nerve is suspicious for ulnar neuritis. Recommend correlation with neurologic exam findings. Approved by: Tavon Patel M.D. on 02/15/2025 at 20:59
== END ==
PROVIDERS: PCP Family Medicine; Referring Provider Orthopaedic Surgery; Visit Provider Orthopaedic Surgery
DX: S53.431A Radial collateral ligament sprain of right elbow, initial encounter (principal); S56.511A Strain of other extensor muscle, fascia and tendon at forearm level, right arm, initial encounter; M25.521 Pain in right elbow; M19.021 Primary osteoarthritis, right elbow
CPT/HCPCS: 73221

== ENCOUNTER → 2025-03-28 13:39 | Outpatient (CLI) | payer MEDICARE, SELFPAY ==
--- NOTE | 2025-03-28 13:41 | DI.NM.S_ITS ---
PROCEDURE: NM EXERCISE TREADMILL NON NUC COMPARISON: None. INDICATIONS: PVC,NSVT FINDINGS: The patient exercised for 8 minutes and 39 seconds reaching 86% of maximum predicted heart rate 10.1 METs, SARAHI -35%. Appropriate BP response to exercise. No angina and no diagnostic ST changes during exercise and recovery. Frequent PACs and frequent PVCs during the study. IMPRESSION: Low risk, normal treadmill ECG only stress test from inducible ischemia standpoint. Excellent exercise tolerance (10.1METs, SARAHI -35%). Frequent PACs and frequent PVCs during the study. Dictated by: Zita Dave MD on 03/29/2025 at 13:45 Approved by: Zita Dave MD on 03/29/2025 at 13:47
--- NOTE | 2025-03-28 14:06 | DI.ECHO.S_ITS ---
[place] [facility]---------+ [facility] : : [id number] : : [place] : : [id number] : : Phone: [phone] Echocardiogram Report + + :Name: DEBORAH AMBRIZ Study Date: 03/28/2025 Height: 70 in : :[facility] ReadingLocation: Weight: 229 lb : : Gender: Male BSA: 2.2 m2 : :: 1950 Age: 74 yrs BP: 115/77 mmHg: :Reason For Study: Arrhythmia : :Ordering Physician: CHRIS, : :MARY Performed By: Nel Fields : :Referring: MARY DAVE : + + Interpretation Summary 1) Normal left ventricular thickness, size, wall motion, and systolic function (EF 55-60%). 2) Normal right ventricular size and function. 3) There is borderline bileaflet mitral valve prolapse. There is trace mitral regurgitation. 4) Compared to the Echo done 08/10/2022, no significant change. Procedure: A two-dimensional transthoracic echocardiogram with color flow and Doppler was performed. The study quality was technically adequate. Comparison is made with the echocardiogram of 08-10-22. The heart rate ranged between 46-52 bpm during the study. Left Ventricle: The left ventricle is normal in size and wall thickness. The ejection fraction is estimated to be 55-60%. Left ventricular systolic function appears normal without focal wall motion abnormalities. Diastolic function could not be accurately assessed due to unobtainable data. Right Ventricle: The right ventricle grossly appears normal in size with probable normal systolic function. Atria: The left atrium is moderately dilated. Right atrial size is normal. The interatrial septum grossly appears intact with no obvious evidence for an atrial septal defect. Mitral Valve: The mitral valve leaflets appear mildly thickened, but open well. There is borderline mitral valve prolapse. There is trace mitral regurgitation. Aortic Valve: The aortic valve is trileaflet. The aortic valve opens well. There is mild aortic valve sclerosis. There is no aortic valve stenosis. No aortic regurgitation is present. Tricuspid Valve: The tricuspid valve leaflets are thin and pliable. No tricuspid regurgitation. Pulmonic Valve: The pulmonic valve leaflets appear thickened, but open well. There is mild to moderate pulmonic regurgitation. Great Vessels: The aortic root is borderline dilated. The ascending aorta is at the upper limits of normal in size. The aortic arch is normal in size. The IVC is of normal diameter and collapses greater than 50% with a sniff. This suggests a low right atrial pressure of 3 mm Hg. Pericardium/ Pleura There is no pericardial effusion. There is no pleural effusion. MMode/2D Measurements & Calculations LVIDd: 5.5 cm LVOT diam: 2.6 cm LVIDs: 3.8 cm Ao root diam: 4.0 cm FS: 31.3 % asc Aorta Diam: 4.0 cm EPSS: 0.97 cm Ao Arch Diam (Prox Trans): 2.8 cm IVSd: 0.95 cm LVPWd: 0.80 cm LV zamora. diameter/BSA (cm/m^2): 2.5 LV sys. diameter/BSA (cm/m^2): 1.7 LA A2 area: 24.7 cm2 RA long axis: 5.9 cm LA A4 area: 26.4 cm2 RA area: 22.1 cm2 LA length (vol): 6.0 cm RA vol: 70.2 ml LA vol: 92.2 ml RA : 31.7 ml/m2 LA vol index: 41.7 ml/m2 IVC diam: 1.8 cm RVD1 (basal): 2.7 cm TAPSE: 2.7 cm Doppler Measurements & Calculations Ao V2 max: 127.9 cm/sec LVOT Max Cyrus: 82.7 cm/sec Ao V2 mean: 95.8 cm/sec LV V1 max P.7 mmHg Ao max P.5 mmHg LV V1 VTI: 21.5 cm Ao mean P.0 mmHg DOMINGO(I,D): 3.6 cm2 Ao V2 VTI: 31.4 cm DOMINGO(V,D): 3.4 cm2 sev ratio: 0.69 DOMINGO indexed to BSA (cm^2/m^2): 1.6 MV E max cyrus: 55.1 cm/sec PA V2 max: 93.4 cm/sec MV A max cyrus: 59.5 cm/sec PA V2 mean: 59.0 cm/sec MV E/A: 0.93 PA mean P.6 mmHg MV dec time: 0.45 sec PA pr(Accel): 25.9 mmHg SV(LVOT): 112.6 ml Reading Physician:05:25 PM
== END ==
LOC: ECHO 13:40
PROVIDERS: PCP Family Medicine; Referring Provider Internal Medicine Cardiovascular Disease; Visit Provider Internal Medicine Cardiovascular Disease
DX: I35.8 Other nonrheumatic aortic valve disorders (principal); I37.1 Nonrheumatic pulmonary valve insufficiency; I47.29 Other ventricular tachycardia; I49.3 Ventricular premature depolarization
CPT/HCPCS: 93017; 93306

== ENCOUNTER → 2025-05-20 14:45 | Outpatient (CLI) | payer MEDICARE, SELFPAY ==
[2025-05-20 16:25] LABS: Alanine Aminotransferase 39 IU/L (<50); Albumin 4.3 g/dL (3.5-5.0); Albumin Globulin Ratio 1.5 (1.0-2.8); Alkaline Phosphatase 66 U/L (38-126); Blood Urea Nitrogen 18 mg/dL (9-20); Calcium 9.7 mg/dL (8.4-10.2); Carbon Dioxide 28 mmol/L (22-32); Chloride 101 mmol/L (98-107); Estimated Glomerular Filt Rate > 60 mL/min (>60); Globulin 2.8 g/dL (1.7-4.1); Glucose 211 mg/dL (70-99); HEMOLYSIS < 15 (0-50); Potassium 4.3 mmol/L (3.4-5.1); Sodium 136 mmol/L (137-145); Total Protein 7.1 g/dL (6.3-8.2)
[2025-05-20 17:21] LABS: Hemoglobin A1C% w Est Avg Glu 8.5 % (4.0-6.0)
== END ==
PROVIDERS: PCP Family Medicine; Referring Provider Family Medicine; Visit Provider Urology
DX: E11.9 Type 2 diabetes mellitus without complications (principal); E78.5 Hyperlipidemia, unspecified; R00.1 Bradycardia, unspecified; I47.29 Other ventricular tachycardia
CPT/HCPCS: 36415; 80053; 83036

== ENCOUNTER → 2025-08-19 08:30 | Outpatient (CLI) | payer MEDICARE, SELFPAY ==
[2025-08-19 09:03] LABS: Hemoglobin A1C% w Est Avg Glu 7.5 % (4.0-6.0)
[2025-08-19 09:21] LABS: Alanine Aminotransferase 32 IU/L (<50); Albumin 4.2 g/dL (3.5-5.0); Albumin Globulin Ratio 1.4 (1.0-2.8); Alkaline Phosphatase 71 U/L (38-126); Blood Urea Nitrogen 18 mg/dL (9-20); Calcium 9.2 mg/dL (8.4-10.2); Carbon Dioxide 27 mmol/L (22-32); Chloride 104 mmol/L (98-107); Estimated Glomerular Filt Rate > 60 mL/min (>60); Globulin 2.9 g/dL (1.7-4.1); Glucose 174 mg/dL (70-99); HEMOLYSIS < 15 (0-50); Potassium 4.3 mmol/L (3.4-5.1); Sodium 140 mmol/L (137-145); Total Protein 7.1 g/dL (6.3-8.2)
[2025-08-19 09:51] LABS: Prostate Specific Antigen 4.07 ng/mL (0.10-4.00); TSH w/ Reflex to FT4 2.01 uIU/mL (0.47-4.68)
[2025-08-19 11:42] LABS: Microalbumi Creatinin Ratio Ur 24.0 ug/mg CR (<30)
== END ==
PROVIDERS: PCP Family Medicine; Referring Provider Urology; Visit Provider Urology
DX: R97.20 Elevated prostate specific antigen [PSA] (principal); E11.9 Type 2 diabetes mellitus without complications; R00.1 Bradycardia, unspecified; E78.5 Hyperlipidemia, unspecified; I47.29 Other ventricular tachycardia
CPT/HCPCS: 36415; 80053; 82043; 82570; 83036; 84153; 84443